=== PATIENT | male | born 1975 | race Caucasian/White ===

== ENCOUNTER 2019-10-16 07:45 | Outpatient (CLI) | payer SELFPAY ==
--- NOTE | 2019-10-16 08:00 | US_ITS ---
WS: [id number] TESTICULAR ULTRASOUND HISTORY: undescended testicle COMPARISON: None available. TECHNIQUE: Real-time and color Doppler imaging or utilized to perform a testicular ultrasound. Right testicle: 5.5 cm x 3.4 cm x 2.1 cm. Normal size and echogenicity. No mass or torsion. Normal color Doppler is present throughout. Systolic and diastolic velocities are both present. No significant hydrocele. Right epididymis: Normal epididymis with no increased vascularity. Left testicle: 3.2 cm x 2.2 cm x 1.4 cm. Small, atrophied LEFT testicle. Tunica albuginea cyst measures 6 mm along the inferior scrotum. No ma ss identified. The LEFT testicle is high within the LEFT inguinal region. Dilated tubular structure posterior to the LEFT inferior testicle is probably a varicocele. No significant hydrocele. Left epididymis: Normal epididymis with no increased vascularity. US/US scrotum [id number] IMPRESSION: 1. Mild atrophy LEFT testicle with the testicle being slightly high riding in the inguinal canal. 2. Negative RIGHT testicle.
== END 2019-10-16 07:46 | disposition home or self-care (01) ==
LOC: RAD 07:48 → RADWPI 07:50
PROVIDERS: PCP Nurse Practitioner Family; Visit Provider Nurse Practitioner Family
DX: Q53.10 Unspecified undescended testicle, unilateral (principal); N50.9 Disorder of male genital organs, unspecified; N45.1 Epididymitis
CPT/HCPCS: 76870

== ENCOUNTER → 2019-12-04 15:12 | Outpatient (BNVA) | payer SELFPAY | PROVIDERS: PCP Nurse Practitioner Family; Visit Provider Urology | DX: N50.811 Right testicular pain (principal); N50.812 Left testicular pain | CPT/HCPCS: 81001 ==

== ENCOUNTER 2019-12-16 10:20 | Day surgery (SDC) | payer SELFPAY ==
[2019-12-13 10:47] VITALS: BMI 21.2
[2019-12-16 10:40] VITALS: BP 110/80; PULSE 63; RESP 20; TEMP 36; O2SAT 99
[2019-12-16] MEDS: sodium chloride 0.9% 1,000 ML 30 ML IV (11:05)
--- NOTE | 2019-12-16 12:30 | ANES.PREANE2 ---
Pre-Anesthetic Assessment Pre-Anesthetic Assessment: Height/Weight: Height 1.91 m Weight 77.111 kg Temp Pulse Resp BP Pulse Ox 96.8 F L 63 20 H 110/80 99 12/16/19 10:40 12/16/19 10:40 12/16/19 10:40 12/16/19 10:40 12/16/19 10:40 Preop Diagnosis: Chronic left testicular pain Proposed Procedure: Operation Date: 12/16/19 13:15 Proposed Procedures p Left Orchiectomy, Scrotal N50.811 N50.812 [id number](Left) - Yo Castillo MD Was Beta Jeromy taken within 24 hours: N/A Last intake: Intake Last Liquid Date 12/15/19 Last Liquid Time 18:00 Last Solid Date 12/15/19 Last Solid Time 22:45 Social: Social History: No alcohol and No tobacco Exam: Pre-Anes Outpt Exam: alert, oriented x 3, clear to auscultation bilaterally and regular rate & rhythm Airway: Submandibular: WNL Cervical ROM: WNL MP: 1 Dentition: Chipped Additional comments: Chipped/gapped dentition History/ROS: No significant history except as noted and No significant complaints Pulmonary: Pulmonary: None reported CV/HEM: CV/HEM: None reported : Comments: Chronic right testicular pain Hepatic: Hepatic: None reported GI: GI: None reported Metabolic: Metabolic: None reported Musc/skel: Musc/skel: None reported Neuropsych: Neuropsych: None reported Anesthetic Plan: ASA status: 2 Anesthesia: General Risk of > 500 ml blood loss (7ml/kg in children): No Meds/Allergies Current Medications: Current Medications Generic Name Dose Route Start Last Admin Trade Name Freq PRN Reason Stop Dose Admin Sodium Chloride 1,000 mls @ 30 ml s/hr 12/16/19 08:00 12/16/19 11:05 Sodium Chloride 0.9% IV 12/17/19 07:59 30 mls/hr .Q24H KAITLIN Administration PFSH Anesthesia PFSH: Medical History (Updated 12/04/19 @ 15:30 by Yo Castillo MD) H/O fracture of leg H/O undescended testicle Pain in both testicles Undescended left testicle Social History Smoking and tobacco status: current every day smoker cigarettes Packs smoked per day: 0.5 Alcohol intake: current Alcohol intake frequency: few times a week Alcohol type: beer Marital status: Current occupational status: employed History of recent travel: No Data Anesthesia Cardiac Studies: No Data to Display
--- NOTE | 2019-12-16 12:43 | W.PM.OPSUD ---
Surgery/Procedure H&P Update DATE OF PROCEDURE: December 16, 2019 DATE H&P PERFORMED: 12/04/19 H&P UPDATE INFORMATION: I have reviewed H&P completed within last 30 days, I have examined patient prior to procedure and No changes to prior documentation CHANGES TO PREVIOUS DOCUMENTATION: None. Doing well. Questions answered. PREOP DIAGNOSIS: Chronic left testicular pain PLANNED PROCEDURE: Operation Date: 12/16/19 13:15 Proposed Procedures p Left Orchiectomy, Scrotal N50.811 N50.812 [id number](Left) - Yo Castillo MD
--- NOTE | 2019-12-16 12:44 | P.OP_ITS ---
Operative Report Date of procedure: December 16, 2019 Pre-op Diagnosis: Chronic left testicular pain Post-op diagnosis: same Procedure Done: Left orchiectomy scrotal approach Pathology: Left testicle and cord Surgeon: Jonathan Anesthesia: General Estimated blood loss: Less than 20 cc none Complications: None Findings: Atrophic testicle. No other gross abnormalities. Condition: stable Disposition: PACU Brief History: Kirk is a very pleasant 44-year-old white male who had a histo ry of an undescended testicle brought down late with chronic pain since that time. Testicle was atrophic. Ultimately the pain was debilitating keeping him from doing normal daily activities and rather than consider cord blocks etc. and chronic pain medication he elected orchiectomy due to the already compromised status of the testicle. Procedure: After routine preoperative evaluation examination and obtaining of informed consent he was taken to the operating suite on 12/16/2019 where general anesthesia was administered without difficulty after appropriate timeout was performed, SCDs confirmed to be functioning, preoperative antibiotics administered, beta-anibal protocol confirmed. Prepped and draped in the usual sterile fashion in supine position pain careful attention to avoiding pressure points. The midline median raphae incision was made over the left testicle taken down through skin subcutaneous tissue into the tunica vaginalis which was opened to expose the testicle. The cord was dissected free and then divided between clamps and the specimen delivered. The proximal stump was doubly ligated. Hemostasis was confirmed. Wound irrigated. After confirmation of no bleeding the wound was closed with 3-0 Vicryl for the dartos layer then 4-0 Vicryl for the subcuticular closure. The wound was infiltrated with 0.25% Marcaine and a cord block was performed. Surgical skin glue was applied to the incision and after drying scrotal fluffs were applied under a scrotal support. Tolerated procedure well without complications and was awakened in the operating room and returned recovery in stable condition.
[2019-12-16 13:39] VITALS: BP 141/93; PULSE 95; RESP 18; TEMP 36.8; O2SAT 98
[2019-12-16 13:40] VITALS: BP 129/81; PULSE 93; RESP 20; O2SAT 98
--- NOTE | 2019-12-16 13:44 | SUR.PHASEI ---
PT TO PACU AWAKE ALERT TALKATIVE DENIES PAIN AND NAUSEA , VSS. DRESSING D/I
[2019-12-16 13:45] VITALS: BP 129/81; PULSE 93; RESP 18; TEMP 36.8; O2SAT 100
[2019-12-16 13:54] VITALS: BP 117/86; PULSE 84; RESP 16; TEMP 36.3; O2SAT 98
== END 2019-12-16 14:17 | disposition home or self-care (01) ==
PROVIDERS: PCP Nurse Practitioner Family; Visit Provider Urology
PROC: (CPT 54520; principal; 2019-12-16 13:15)
DX: N50.812 Left testicular pain (principal); F17.210 Nicotine dependence, cigarettes, uncomplicated
CPT/HCPCS: 54520; 12345; 88304; J0690; J1100; J2001; J2250; J2704; J3010; J3490; J7030

== ENCOUNTER → 2020-01-20 09:39 | Outpatient (BNVA) | payer SELFPAY | PROVIDERS: PCP Nurse Practitioner Family; Visit Provider Urology | DX: N50.811 Right testicular pain (principal); N50.812 Left testicular pain | CPT/HCPCS: 81001 ==

== ENCOUNTER 2022-03-11 11:23 | Emergency (ER) | payer MEDICAID, SELFPAY ==
[2022-03-11 11:37] VITALS: BP 123/85; PULSE 110; RESP 16; TEMP 36.5; O2SAT 98
--- NOTE | 2022-03-11 11:53 | USCV_ITS ---
Kirk Curry Age: 46 Gender: M : 1975 Exam Date: 03/11/2022 12:01 Ordering Phys: Federico Siddiqui DO Technologist: SHA Exam Location: [facility] Indication: RLE PAIN AND SWELLING HISTORY: Lower extremity swelling. Lower extremity pain. PROCEDURES: Venous duplex imaging was performed in only the right lower extremity. The following venous structures were evaluated: common femoral vein, profunda vein, proximal portion of the greater saphenous vein, superficial femoral vein, and the popliteal vein. In addition, the posterior tibial and peroneal trunk were evaluated. Serial compression, augmentation maneuvers, and spectral Doppler flow evaluation were performed. FINDINGS: Acute, occlusive DVT seen in Right popliteal through posterior tibial vein. All other veins appear patent. CONCLUSIONS Acute right DVT, popliteal and posterior tibial vein. Dr. Luciana Ramos DO (Electronically Signed) Final Date: 11 March 2022 13:11 S
[2022-03-11 12:00] VITALS: BP 130/91; PULSE 103; RESP 18; O2SAT 97
--- NOTE | 2022-03-11 12:00 | W.ED.EXTPRO ---
HPI - Extremity Problem General: Chief complaint: Extremity Problem,Nontraumatic Stated complaint: Lower R Leg pain Time Seen by Provider: 03/11/22 11:53 Source: patient Mode of arrival: ambulatory History of Present Illness: 46-year-old male presented to the emergency room with complaint of right lower leg pain has had for the last several days no recent airline flights or prolonged trips no history of DVT. He has moderate swelling with it as well. No recent surgeries. MD Complaint: extremity pain and extremity swelling Onset (ago): day(s) Pain Consistency: constant Location: right and lower extremity Quality: aching Radiation: none Relieving factors: nothing Exacerbating factors: weight bearing and walking Associated symptoms: Deny arthralgias, chest pain, fever(s), myalgias, rash or short of breath Review of Systems Const: Denies: fever(s), chills, fatigue or malaise ENMT: Denies: throat pain, ear or mastoid pain, nasal discharge or nasal congestion Card: Denies: chest pain Resp: Denies: dyspnea, productive cough or non-productive cough GI: Denies: abdominal pain, nausea, vomiting, hematemesis, coffee ground emesis, diarrhea, constipation, bloating, hematochezia or melena : Denies: flank pain, dysuria, urinary frequency or urinary urgency Skin/Breast: Denies: rash PFSH ED PFSH: Medical History H/O fracture of leg H/O undescended testicle Pain in both testicles Testicular pain Undescended left testicle Family History Mother Diabetes Father No problems noted. Social History Smoking and tobacco status: current every day smoker cigarettes Packs smoked per day: 0.5 Alcohol intake: current Alcohol intake frequency: few times a week Alcohol type: beer Marital status: Current occupational status: employed History of recent travel: No Physical Exam Const: COMMON NORMALS: no acute distress GENERAL APPEARANCE: cooperative and comfortable ORIENTATION/CONSCIOUSNESS: Yes awake, Yes oriented to person, Yes oriented to place and Yes oriented to time HENMT: COMMON NORMALS: normocephalic, atraumatic and hearing grossly normal bilaterally HEAD & SCALP: normocephalic and atraumatic Resp: COMMON NORMALS: normal respiratory effort, No retractions, No use of accessory muscles and clear to auscultation bilaterally AUSCULTATION: clear to auscultation bilaterally Cardio: COMMON NORMALS: regular rate, regular rhythm and No murmurs present (Cardio) RATE: regular rate RHYTHM: regular rhythm GI: COMMON NORMALS: Soft to palpation and No hepatosplenomegaly present AUSCULTATION: Yes normoactive bowel sounds PALPATION: Yes Soft to palpation, No Tenderness to palpation present (GI), No Guarding due to palpation present (GI) and Yes No hepatosplenomegaly present Extremity: COMMON NORMALS: normal to inspection, capillary refill normal, no clubbing, cyanosis or edema, no calf tenderness and no pedal edema Neuro: SENSORIUM/ORIENTATION: Yes oriented to person, Yes oriented to place and Yes oriented to time Skin: COMMON NORMALS: no rashes or lesions noted GENERAL SKIN EXAM: no rashes or lesions noted Course Vital Signs: Vital signs: Vital Signs Temperature 97.7 F 03/11/22 11:37 Pulse Rate 90 03/11/22 12:32 Respiratory Rate 18 03/11/22 12:32 Blood Pressure 127/87 03/11/22 12:32 Pulse Oximetry 98 03/11/22 12:32 Oxygen Delivery Me thod 03/11/22 12:00 MDM - Extremity (Nontraumatic) Medical Decision Making Venous duplex shows popliteal DVT. Lovenox subcu here start Eliquis follow-up with primary care return if is problems specially watch for shortness of breath or chest pain. Medical Records I reviewed the patient's medical records. Lab Data I reviewed the patient's lab results. Discharge Plan Discharge Patient Disposition: Home Clinical Impression: DVT (deep venous thrombosis) Condition: Stable Prescriptions: New Eliquis DVT-PE Treat 30D Start 5 mg (74 tabs) tablets,dose pack See Rx Instructions .ROUTE .COMPLEX Qty: 74 0RF Rx Instructions: orally per package directions Discharge Orders: Discharge ED (Routine); Ordered 03/11/22 Ordered By: Federico Siddiqui Referrals: Shayna Tyson NP [Primary Care Provider] - Discharge Diet: Usual diet Discharge Activity: Increase activity as tolerated Patient Instructions: Opioid Safety Activity Restrictions/Additional Instructions: You were diagnosed with a DVT. Started on Eliquis follow-up with your doctor within the week. Anticipate staying on the Eliquis for at least 6 to 9 months possibly longer. When you have your follow-up appointment with your primary care doctor next week you should discuss refills on your Eliquis. Coding Level of Care Code ED [employer] for Ezequiel Rodriguez
[2022-03-11 12:32] VITALS: BP 127/87; PULSE 90; RESP 18; O2SAT 98
== END 2022-03-11 12:34 | disposition home or self-care (01) ==
PROVIDERS: Emergency Provider Family Medicine; PCP Nurse Practitioner Family
DX: I82.431 Acute embolism and thrombosis of right popliteal vein (principal); F17.210 Nicotine dependence, cigarettes, uncomplicated
CPT/HCPCS: 93971; 99284

== ENCOUNTER 2023-01-03 12:33 | Emergency (ER) | payer BC, MEDICAID, SELFPAY ==
--- NOTE | 2023-01-03 12:38 | USCV_ITS ---
Kirk Curry Age: 47 Gender: M : 1975 Exam Date: 01/03/2023 13:41 Ordering Phys: Minda Hodgosn MD Technologist: Jozef Avila [place] [facility] [place] Indication: lt leg pain and swelling hx of dvt on rt side PROCEDURES: Venous duplex imaging was performed in only the left lower extremity. The following venous structures were evaluated: common femoral vein, profunda vein, proximal portion of the greater saphenous vein, superficial femoral vein, and the popliteal vein. In addition, the posterior tibial and peroneal trunk were evaluated. FINDINGS: Normal 2-D Doppler and augmentation and compressibility throughout the lower extremity venous structures. Additional imaging through the proximal calf veins also reveals no thrombus. Limited evaluation of the greater saphenous vein is patent with no thrombus. CONCLUSIONS No evidence of left lower extremity DVT. Jimbo Frey MD (Electronically Signed) Final Date: 05 January 2023 12:48 S
[2023-01-03 13:02] VITALS: BP 123/89; PULSE 87; RESP 16; TEMP 36.7; O2SAT 98; BMI 22.5
--- NOTE | 2023-01-03 14:20 | ED_ITS ---
HPI - Extremity Problem General: Chief complaint: Extremity Injury, Lower Stated complaint: possible bloodclot in left leg Time Seen by Provider: 01/03/23 14:19 History of Present Illness: Patient is a 47-year-old male that comes to the ED with left leg pain. Pain started in left knee last night. He denies any injury or trauma to cause pain. He rates his pain about a 7 out of 10 when he is ambulating. His main concern was to be checked for DVT. Associated symptoms: Deny chest pain, fever(s) or rash Review of Systems Const: Denies: fever(s), chills or fatigue Eyes: Denies: change in vision or eye discomfort ENMT: Denies: throat pain, odynophagia, nasal discharge or nasal congestion Card: Denies: chest pain, palpitations, edema, swelling of feet/ankles, dyspnea on exertion or orthopnea Resp: Denies: dyspnea, productive cough or non-productive cough GI: Denies: abdominal pain, nausea, vomiting, diarrhea, constipation or hematochezia : Denies: flank pain, difficulty urinating, dysuria or hematuria Musc: Reports: extremity pain (Left leg); Denies: neck pain, back pain or extremity swelling Skin/Breast: Denies: rash or new lesions Neuro: Denies: headache(s), numbness in extremities or weakness in extremities PFS ED PFSH: Medical History H/O fracture of leg H/O undescended testicle Pain in both testicles Testicular pain Undescended left testicle Family History Mother Diabetes Father No problems noted. Social History Smoking and tobacco status: current every day smoker cigarettes Packs smoked per day: 0.5 Alcohol intake: current Alcohol intake frequency: few times a week Alcohol type: beer Substance/Drug Use: never Marital status: Current occupational status: employed Physical Exam Const: COMMON NORMALS: patient oriented x3 HENMT: COMMON NORMALS: normocephalic HEAD & SCALP: normocephalic MOUTH: Normal oral and palatal mucosa present THROAT: posterior oropharynx normal and uvula midline Neck/C-Spine: COMMON NORMALS: supple GENERAL: Yes normal visual inspection Resp: COMMON NORMALS: normal respiratory effort, No retractions, No use of accessory muscles and clear to auscultation bilaterally AUSCULTATION: clear to auscultation bilaterally Cardio: COMMON NORMALS: regular rate, regular rhythm, S1 normal heart sound present, S2 normal heart sound present, No gallops present (Cardio), No clicks present (Cardio), No murmurs present (Cardio) and Peripheral pulses 2+ throughout RATE: regular rate RHYTHM: regular rhythm HEART SOUNDS: S1 normal heart sound present and S2 normal heart sound present PERIPHERAL PULSES: Peripheral pulses 2+ throughout GI: COMMON NORMALS: Normal to inspection, nondistended, normoactive bowel sounds present, Soft to palpation, non-tender and no masses PALPATION: Yes Soft to palpation : COMMON NORMALS: Yes no CVA tenderness BLADDER/KIDNEY EXAM: Yes no CVA tenderness Back/Pelvis: COMMON NORMALS: no CVA tenderness Extremity: COMMON NORMALS: normal to inspection Neuro: COMMON NORMALS: patient oriented x3 GAIT: Yes Normal gait present Skin: GENERAL SKIN EXAM: dry skin Course Vital Signs: Vital signs: Vital Signs Temperature 98.0 F 01/03/23 13:02 Pulse Rate 87 01/03/23 13:02 Respiratory Rate 16 01/03/23 13:02 Blood Pressure 123/89 01/03/23 13:02 Pulse Oximetry 98 01/03/23 13:02 Oxygen Delivery Me thod Room Air 01/03/23 13:02 MDM - Extremity (Nontraumatic) Medical Decision Making Patient is a 47-year-old male that comes to the ED with left leg pain. Pain started in left knee last night. He denies any injury or trauma to cause pain. He rates his pain about a 7 out of 10 when he is ambulating. His main concern was to be checked for DVT. Vitals are stable. Exam is benign. Ultrasound venous duplex of left lower extremity showed no DVTs or blood clots seen as reported by process controls technician. Patient was stable for discharge home and diagnosed with pain in left leg. Told to follow-up with his PCP in the next week for reevaluation. Return ED precautions given. Patient understood and agreed with plan. Discharge Plan Discharge Patient Disposition: Home Clinical Impression: Pain in left leg Condition: Stable Prescriptions: No Action Eliquis 5 mg tablet 5 mg PO BID Qty: 60 6RF Discharge Orders: Discharge ED (Routine); Ordered 01/03/23 Ordered By: Jewel Ling Referrals: Shayna Tyson NP [Primary Care Provider] - Discharge Diet: Regular Discharge Activity: Increase activity as tolerated and Use walker/crutches as instructed Activity Restrictions/Additional Instructions: Follow-up with medical provider as directed in the next 5 to 7 days for reevaluation. Rest, ice and elevate left leg to help with symptoms. Take [id number] Tylenol for pain. Continue taking all home medications as previously prescribed. Return to the ER or your medical provider if condition worsens. Please read and understand discharge instructions. Thank you for choosing [facility] for your healthcare needs today. Please realize this is an emergency room and that we are providing you with a medical screening exam and this may not be complete and all inclusive of all the testing and or work up that you may need to determine your ailment or severity of your illness. It is very important that you follow up as instructed or that you return to the Emergency Department should you have concerns or if your condition changes or worsens in any way. Coding Level of Care Code ED [employer] for Ezequiel Rodriguez
== END 2023-01-03 14:33 | disposition home or self-care (01) ==
PROVIDERS: Emergency Provider Physician Assistant; PCP Nurse Practitioner Family
DX: M79.605 Pain in left leg (principal); F17.210 Nicotine dependence, cigarettes, uncomplicated
CPT/HCPCS: 93971; 99284

== ENCOUNTER 2024-01-18 00:08 | Inpatient (IN) | payer SELFPAY ==
[2024-01-18] VITALS (8 sets, daily range): BP systolic 111–145; BP diastolic 68–97; PULSE 69–91; RESP 15–17; TEMP 36.4–36.7; O2SAT 97–100
--- NOTE | 2024-01-18 00:18 | ECG_ITS ---
[facility] Test Date: 2024-01-18 Pat Name: Kirk Curry Department: Room: Gender: Male Etl Analyst Developer: : 1975 Requested By: Harriett Reeves Order Number: [id number] Adriana MD: Vinicius Ortiz M.D. Measurements Intervals [place] Rate: 75 P: 68 [place]: 177 QRS: 73 QRSD: 101 T: 58 QT: 383 QTc: 429 Interpretive Statements SINUS RHYTHM POSSIBLE LEFT ATRIAL ENLARGEMENT [-0.1mV P-WAVE IN V1/V2] No previous ECG available for comparison Electronically Signed On 01-18-2024 23:21:57 CDT by Vinicius Ortiz M.D. [id number]
--- NOTE | 2024-01-18 00:31 | ED.C_ITS ---
HPI - Psych 2 General: Chief Complaint: Psychiatric Symptoms Stated Complaint: SI Time Seen by Provider: 01/18/24 00:14 History of Present Illness: 48-year-old man who presents to the [facility] room with suicidal thoughts. He says he has been thinking about it for several months now. He says he had taken a rope and made a noose and was going to hang into a tree today. He has a bit of an odd affect. He says he is not on any depression medications and has never been prescribed any. Review of Systems 2 Narrative: Constitutional symptoms: Negative except as documented in HPI. Skin symptoms: Negative except as documented in HPI. Eye symptoms: Negative except as documented in HPI. ENMT symptoms: Negative except as documented in HPI. Respiratory symptoms: Negative except as documented in HPI. Cardiovascular symptoms: Negative except as documented in HPI. Gastrointestinal symptoms: Negative except as documented in HPI. Genitourinary symptoms: Negative except as documented in HPI. Musculoskeletal symptoms: Negative except as documented in HPI. Neurologic symptoms: Negative except as documented in HPI. Psychiatric symptoms: Negative except as documented in HPI. Endocrine symptoms: Negative except as documented in HPI. PFSH ED 2 PFSH: Medical History H/O fracture of leg H/O undescended testicle Pain in both testicles Testicular pain Undescended left testicle Family History Mother Diabetes Father No problems noted. Social History Smoking and tobacco/nicotine status: current every day tobacco/nicotine user cigarettes Packs smoked per day: 0.5 Alcohol intake: current Alcohol intake frequency: few times a week Alcohol type: beer Substance/Drug Use: never Marital status: Current occupational status: employed Physical Exam 2 Narrative: EXAM NARRATIVE: General: Alert. no acute distress Skin: Warm, dry Head: Normocephalic, atraumatic. Neck: Supple, trachea midline. Eye: Extraocular movements are intact. Ears, nose, mouth and throat: Oral mucosa moist. Cardiovascular: Regular rate and rhythm, Normal peripheral perfusion. Respiratory: Lungs are clear to auscultation, respirations are non-labored, breath sounds are equal, Symmetrical chest wall expansion. Gastrointestinal: Soft, Nontender, Non distended, Normal bowel sounds. Musculoskeletal: Normal ROM, no deformity. Neurological: Alert and oriented to person, place, time, and situation, No focal neurological deficit observed. Psychiatric: Cooperative, pressured affect, expresses suicidal ideation. Course 2 Vital Signs: Vital signs: Vital Signs Temperature 98.1 F 01/18/24 00:21 Pulse Rate 78 01/18/24 00:21 Respiratory Rate 16 01/18/24 00:21 Blood Pressure 118/84 01/18/24 00:21 Pulse Oximetry 97 01/18/24 00:21 Oxygen Delivery Me thod Room Air 01/18/24 00:21 MDM - Psych Medical Decision Making Differential diagnosis: Patient with reported depression and suicidal ideation. concerns for infection, alcohol intoxication, cardiac issues or other medical problems prior to psychiatric admission. Workup: labwork, ekg ordered to evaluate the pathologies and to clear the patient medically prior to psychiatric admission Lab Review: Laboratory results were reviewed and interpreted by myself the emergency room physician. Lab review: - Medically cleared. - EKG shows no ischemic changes. - Blood alcohol level is 278, as well as salicylate and Tylenol. - Drug screen is negative - No signs of infection, urinalysis clear and white count is not elevated - No anemia. - BUN and creatinine are within normal limits. Consultation: I spoke with Dr. Trivedi who agrees to admit the patient. Patient is currently alert and oriented and obviously has some experience drinking alcohol. Hold is being placed. Assessment and plan: Suicidal ideation Alcohol intoxication -Admission to neuropsychiatric unit for continued evaluation and treatment. - All lab work was reviewed and interpreted personally by myself, the ER physician - Evaluation and treatment of this problem were appropriate in the emergency setting Lab Data 01/18/24 00:30 01/18/24 00:30 Laboratory Results WBC 7.87 10^3/uL (3.29-11.43) 01/18/24 00:30 RBC 4.51 10^6/uL (3.85-5.65) 01/18/24 00:30 Hgb 13.90 g/dL (11.27-16.99) 01/18/24 00:30 Hct 40.5 % (37-53) 01/18/24 00:30 MCV 89.8 fl (82-101) 01/18/24 00:30 MCH 30.8 pg (27-33) 01/18/24 00:30 MCHC 34.3 g/dL (30-55) 01/18/24 00:30 RDW 13.9 % (12.1-15.1) 01/18/24 00:30 Plt Count 222 10^3/cmm (157-399) 01/18/24 00:30 MPV 9.2 fL (7.4-10.4) 01/18/24 00:30 Neut % (Auto) 50.2 % 01/18/24 00:30 Lymph % (Auto) 38.6 % 01/18/24 00:30 Fajardo % (Auto) 7.5 % 01/18/24 00:30 Eos % (Auto) 2.5 % 01/18/24 00:30 Baso % (Auto) 0.9 % 01/18/24 00:30 Neut # (Auto) 3.95 10^3/uL (1.8-7.7) 01/18/24 00:30 Lymph # (Auto) 3.0 10^3/uL (0.8-4.8) 01/18/24 00:30 [place]ardo # (Auto) 0.6 10^3/uL (0.2-0.9) 01/18/24 00:30 Eos # (Auto) 0.2 10^3/uL (0.0-0.8) 01/18/24 00:30 Baso # (Auto) 0.1 10^3/uL (0.0-0.1) 01/18/24 00:30 Nucleated RBC % (auto) 0 % 01/18/24 00:30 Nucleated RBCs # 0.0 /100WBC 01/18/24 00:30 Sodium 137 mmol/L (136-145) 01/18/24 00:30 Potassium 3.6 mmol/L (3.5-5.1) 01/18/24 00:30 Chloride 103 mmol/L (98-107) 01/18/24 00:30 Carbon Dioxide 22 mmol/L (22-29) 01/18/24 00:30 Anion Gap 15.6 (5-19) 01/18/24 00:30 BUN 5 mg/dL (6-20) L 01/18/24 00:30 Creatinine 0.7 mg/dL (0.7-1.2) 01/18/24 00:30 GFR Calculation 120.4 mL/min (90-130) 01/18/24 00:30 Glucose 94 mg/dL (65-115) 01/18/24 00:30 Calculated Osmolality 281 mOsm/kg (285-295) L 01/18/24 00:30 Calcium 9.4 mg/dL (8.5-10.5) 01/18/24 00:30 Total Bilirubin 0.3 mg/dL (0.15-1.2) 01/18/24 00:30 AST 34 U/L (0-40) 01/18/24 00:30 ALT 33 U/L (0-41) 01/18/24 00:30 Alkaline Phosphatase 69 U/L (40-130) 01/18/24 00:30 Total Protein 7.9 g/dL (6.6-8.7) 01/18/24 00:30 Albumin 4.4 g/dL (3.5-5.2) 01/18/24 00:30 Globulin 3.5 g/dL (1.3-4.6) 01/18/24 00:30 TSH 2.26 uIU/mL (0.27-4.20) 01/18/24 00:30 Urine Color Yellow (Yellow) 01/18/24 00:17 Urine Appearance Clear (CLEAR) 01/18/24 00:17 Urine pH 5 (5-7) 01/18/24 00:17 Ur Specific [place] 1.005 (1.005-1.030) 01/18/24 00:17 Urine Protein Neg (Negative) 01/18/24 00:17 Urine Glucose (UA) Norm (Normal) 01/18/24 00:17 Urine Ketones Negative (Negative) 01/18/24 00:17 Urine Blood Neg (Negative) 01/18/24 00:17 Urine Nitrate Negative (Negative) 01/18/24 00:17 Urine Bilirubin Neg (Negative) 01/18/24 00:17 Urine Urobilinogen Neg mg/dL (Negative) 01/18/24 00:17 Ur Leukocyte Esterase Negative (Negative) 01/18/24 00:17 Urine RBC None /hpf (0-2) 01/18/24 00:17 Urine WBC None /hpf (0-5) 01/18/24 00:17 Ur Squamous Epith Cells None /hpf (0-5) 01/18/24 00:17 Amorphous Sediment Not Reportable 01/18/24 00:17 Urine Bacteria Trace /hpf (NONE) 01/18/24 00:17 Salicylates < 0.3 mg/dL (3-10) L 01/18/24 00:30 Urine Opiates Screen Negative ng/mL (Negative) 01/18/24 00:17 Acetaminophen < 5.0 ug/mL (10-30) L 01/18/24 00:30 Ur Barbiturates Screen Negative ng/mL (Negative) 01/18/24 00:17 Ur Phencyclidine Scrn Negative ng/mL (Negative) 01/18/24 00:17 Ur Amphetamines Screen Negative ng/mL (Negative) 01/18/24 00:17 U Benzodiazepines Scrn Negative ng/mL (Negative) 01/18/24 00:17 Urine Cocaine Screen Negative ng/mL (Negative) 01/18/24 00:17 U Marijuana (THC) Screen Negative ng/mL (Negative) 01/18/24 00:17 Ethyl Alcohol 278 mg/dL (0-10) H 01/18/24 00:30 No radiology studies performed this visit Discharge Plan Discharge Patient Disposition: Admitted As Inpatient Clinical Impression: Depression, Suicidal ideation, Alcohol intoxication Condition: Stable Coding Level of Care Code ED [employer] for Ezequiel Rodriguez
[2024-01-18 00:35] LABS: Amphetamines Screen Urine Negative (Negative); Barbiturates Screen Urine Negative (Negative); Benzodiazepines Screen Urine Negative (Negative); Cocaine Screen Urine Negative (Negative); Opiate Screen Urine Negative (Negative); PCP Screen Urine Negative (Negative); THC Screen Urine Negative (Negative)
[2024-01-18 00:39] LABS: Basophils # 0.1 10^3/uL (0.0-0.1); Basophils % 0.9 %; Eosinophils # 0.2 10^3/uL (0.0-0.8); Eosinophils % 2.5 %; Hematocrit 40.5 % (37-53); Lymphocytes % 38.6 %; Mean Corpuscular HGB Conc 34.3 g/dL (30-55); Mean Corpuscular Hemoglobin 30.8 pg (27-33); Mean Corpuscular Volume 89.8 fl (82-101); Mean Platelet Volume 9.2 fL (7.4-10.4); Monocytes # 0.6 10^3/uL (0.2-0.9); Monocytes % 7.5 %; Neutrophils # 3.95 10^3/uL (1.8-7.7); Neutrophils % 50.2 %; Nucleated Red Blood Cells % 0 %; Platelet Count 222 10^3/cmm (157-399); Red Blood Count 4.51 10^6/uL (3.85-5.65); Red Cell Distribution Width 13.9 % (12.1-15.1); White Blood Count 7.87 10^3/uL (3.29-11.43)
[2024-01-18 01:04] LABS: Add Urine Culture? No; Bacteria Urine TRACE /hpf; Bilirubin Urine Neg (Negative); Blood Urine Neg (Negative); Glucose Urine UA Norm (Normal); Ketones Urine Negative (Negative); Leukocyte Esterase Urine Negative (Negative); Nitrate Urine Negative (Negative); Protein Urine Neg (Negative); Specific Gravity, Urine 1.005 (1.005-1.030); Urine Appearance Clear (CLEAR); Urine Color Yellow (Yellow); Urobilinogen Urine Neg (Negative); pH Urine 5 (5-7)
[2024-01-18 01:19] LABS: Alanine Aminotransferase 33 U/L (0-41); Albumin Level 4.4 g/dL (3.5-5.2); Alcohol Level 278 mg/dL (0-10); Alkaline Phosphatase 69 U/L (40-130); Anion Gap 15.6 (5-19); Aspartate Amino Transferase 34 U/L (0-40); Blood Urea Nitrogen 5 mg/dL (6-20); Calcium 9.4 mg/dL (8.5-10.5); Carbon Dioxide 22 mmol/L (22-29); Chloride 103 mmol/L (98-107); Creatinine Clr Calc Pharmacy 153.8189; Globulin 3.5 g/dL (1.3-4.6); Glomerular Filtration Rate 120.4 mL/min (90-130); Glucose 94 mg/dL (65-115); Osmolality Calculated 281 mOsm/kg (285-295); Potassium 3.6 mmol/L (3.5-5.1); Sodium 137 mmol/L (136-145); Thyroid Stimulating Hormone 2.26 uIU/mL (0.27-4.20); Total Bilirubin 0.3 mg/dL (0.15-1.2); Total Protein 7.9 g/dL (6.6-8.7)
[2024-01-18 01:20] LABS: Acetaminophen < 5.0 ug/mL (10-30); Salicylate < 0.3 mg/dL (3-10)
--- NOTE | 2024-01-18 01:42 | PC.NURSE ---
RN and [employer] into room to serve 96 hour hold rights. Pt verbalized understanding and no further questions. Pt requested copy of rights be placed into his belongings which was done.
--- NOTE | 2024-01-18 01:45 | PC.NURSE ---
Report was called to Michaela MONZON. All questions and concerns were addressed at time of report.
[2024-01-18 08:01] LABS: Glucose Point of Care 93 mg/dL (70-110)
[2024-01-18] MEDS: thiamine 100 mg Tablet PO (09:48)
[2024-01-18] MEDS: folic acid 1 mg Tablet PO (09:49)
[2024-01-18] MEDS: multivitamin therapeutic Tablet 1 TAB PO (09:49)
[2024-01-18 11:55] LABS: Glucose Point of Care 94 mg/dL (70-110)
--- NOTE | 2024-01-18 19:26 | P.NPUHP_ITS ---
Providers/Chief Complaint 2 Admitting Physician: Xavier Trivedi MD Primary Care Provider: Shayna Tyson NP Chief Complaint: SI HPI NPU History of Present Illness Kirk Curry is a 48 year old male who presented to the emergency department with the following report: Chief Complaint: Psychiatric Symptoms Stated Complaint: SI Time Seen by Provider: 01/18/24 00:14 History of Present Illness: 48-year-old man who presents to the emergency room with suicidal thoughts. He says he has been thinking about it for several months now. He says he had taken a rope and made a noose and was going to hang into a tree today. He has a bit of an odd affect. He says he is not on any depression medications and has never been prescribed any. He was admitted to the neuropsychiatric unit for definitive treatment of those issues. He has no significant mental health or addiction treatment inpatient or outpatient in the system. He did have contact with the crisis stabilization center last month. He presents today reporting: Chief complaint The patient was brought to the hospital due to an increase in anxiety and depressive symptoms, which have been escalating over the past few months. The patient also reported an increase in alcohol consumption, which he has been using as a coping mechanism for his emotional distress. The trigger for his recent crisis was a situation involving a female friend, which led to feelings of jealousy and frustration. History of the present complaint The patient, a 76-year-old male, presented to the hospital following an incident the previous night. He reported that over the past few months, he has been experiencing increasing anxiety, particularly in groups of people. He described this as a different kind of anxiety, not like a blackout, but something that snaps in his head. The trigger for the most recent episode was a situation involving a female friend, who was showing attention to another man. The patient admitted that he has feelings for this friend but has not expressed them due to fear of losing their friendship. The patient reported that these feelings of anxiety and frustration have been escalating over the past few months. He also admitted to struggling with low mood and feelings of helplessness, hopelessness, and worthlessness. His sleep has been disrupted, often sleeping too much, and he finds less enjoyment in life. He also reported low energy levels and changes in appetite, eating less which he believes contributes to his low energy. The patient disclosed that he has had thoughts of suicide and has acted on these thoughts twice in the past. The first time involved obtaining a rope but not taking it home, while the second time involved taking the rope home. He also admitted to self-injurious behavior, such as punching a door a couple of weeks ago. The patient reported that he started smoking daily at the age of 17 and currently smokes about two packs a day. His alcohol use has increased over the past few years, currently consuming 10 to 12 drinks daily. His blood alcohol level was 278 upon admission to the hospital. He denied any use of cannabis or other drugs. The patient has never received any mental health treatment or therapy and has never taken any medication for mental health issues. He has had one recorded DUI in 2007 and another incident where he was pulled over in 2009. The patient denied any history of hallucinations or paranoia but admitted to occasional nightmares or flashbacks without consistent patterns. He also denied any compulsive behaviors related to intrusive thoughts. In terms of past treatments and interventions, the patient mentioned talking to someone named Deanna at a crisis center following his first suicide attempt. However, he has never been on any mental health medication or received outpatient services. Regarding his current medications, the patient reported not taking any at present. Mental health history The patient has no previous history of psychiatric hospitalization or outpatient services. He has never been on any mental health medication for anxiety, depression, mood dysregulation, or ADHD. However, he has had two instances where he contemplated suicide and took steps towards it by acquiring a rope. He also reported periods of low mood characterized by feelings of helplessness, hopelessness, and worthlessness, disrupted sleep patterns (usually sleeping too much), loss of interest in life, low energy, and changes in appetite. Social history The patient is a regular smoker since the age of 17 and currently smokes about two packs a day. His alcohol consumption has increased over the past few years, currently drinking 10 to 12 beers daily. He has no history of cannabis or other drug use but has been pulled over twice for DUIs. He lives in a community with around 70 other people and has held a job for 12 years. He identifies as heterosexual and his longest relationship lasted seven years. Meds NPU Home Medications Medication Instructions Recorded Confirmed Last Taken Type No Known Home Medications 01/18/24 01/18/24 Unknown History Allergies Allergy/AdvReac Type Severity Reaction Status Date / Time Alpha-Gal Allergy ALGY-Anaphy Verified 01/18/24 00:30 (Dmvxmtrsj-Drclo-4,3-Gala laxis PFSH NPU 2 PFSH: Medical History H/O fracture of leg H/O undescended testicle Pain in both testicles Testicular pain Undescended left testicle Family History Mother Diabetes Father No problems noted. Social History Smoking and tobacco/nicotine status: current every day tobacco/nicotine user cigarettes Packs smoked per day: 0.5 Alcohol intake: current Alcohol intake frequency: few times a week Alcohol type: beer Substance/Drug Use: never Marital status: Current occupational status: employed Mental Status Exam 2 MSE Comments: This is a well-nourished well-developed white male in hospital scrubs with adequate grooming and eye contact. Notable tattoos on exposed skin of arms. No abnormal movements except for mild psychomotor retardation. Cooperative with exam in mild distress. Speech was slightly decreased rate and volume. Mood described as depressed, affect congruent. Thought process organized. Thought content: Patient denies suicidal or homicidal ideation, there were no delusions reported or noted, he denied any auditory or visual hallucinations. The patient reported feeling calm during the consultation with no current thoughts of self- harm or harm towards others. He denied experiencing paranoia or hallucinations. He did report occasional nightmares but no consistent patterns related to intrusive thoughts. Attention and concentration were intact and memory appeared mostly reliable but none were formally tested. He is alert and oriented x 3. Insight and judgment are limited and impulse control is impaired. Vitals/I&O/Wt Last Vital Signs Temp 97.5 F L 01/18/24 16:00 Pulse 69 01/18/24 16:00 Resp 17 01/18/24 18:00 BP 145/97 01/18/24 16:00 Pulse Ox 98 01/18/24 16:00 O2 Del Method Room Air 01/18/24 04:00 Weight last 48 hrs Weight 83.915 kg Data NPU 01/18/24 00:30 01/18/24 00:30 A&P Assessment and plan (1) Major depressive disorder: (2) Suicidal ideation: (3) Alcohol intoxication: (4) Alcohol use disorder, moderate, dependence: Plan This is a 48-year-old male with long history of alcohol use but limited history of mental health treatment who presented to the emergency department with suicidal thoughts and active furtherance of securing a rope. The patient appears to be suffering from major depressive disorder with symptoms including low mood, feelings of hopelessness and worthlessness, disrupted sleep patterns, loss of interest in life, low energy, changes in appetite, and suicidal ideation. His increased alcohol consumption may be a coping mechanism for his emotional distress. 1. Start Prozac 20 mg p.o. daily 2. Encourage individual, group and milieu therapy. 3. Continue every 15 minute checks for safety. 4. Evaluate for safety for discharge given 96-hour hold 5. Encourage sober living treatment after discharge at the highest level of care to which she is willing to commit. Involuntary Hold Information 2 96 Hour Hold: 96 Hour Involuntary Admission: No Attestations NPU 2 Medical Necessity Statement*: Inpatient psychiatric hospitalization is medically necessary and the clinically appropriate intervention at this time. We will monitor medications and make changes as indicated. He will be in the hospital for over 2 midnights. Likely length of stay 4-6 days. Coding Level of Care Code Acute Code for [facility] Diagnoses Major depressive disorder F32.9 Suicidal ideation R45.851 Alcohol intoxication F10.929 Alcohol use disorder, moderate, dependence F10.20
[2024-01-19] VITALS (7 sets, daily range): BP systolic 123–151; BP diastolic 78–91; PULSE 50–59; RESP 14–18; TEMP 36.4–36.8; O2SAT 98–100
--- NOTE | 2024-01-19 00:49 | PC.NURSE ---
Pt not scoring on CIWA Scale, reported Respirations, did not wake pt to get full vitals at this time.
--- NOTE | 2024-01-19 07:50 | PC.NURSE ---
Patient denies avh and si/hi. He states he feels well this morning and is scoring a zero on his CIWA this morning. He denies any withdrawal symptoms. Patient says he has a hx of medical issues with his testicles that has been ongoing and has been addressed by physicians outside of this stay. Patient rates pain in his left testicle at a 4/10. He says he experiences nausea because of this at times as well. Very pleasant and cooperative.
[2024-01-19] MEDS: thiamine 100 mg Tablet PO (09:40)
[2024-01-19] MEDS: fluoxetine 20 mg Capsule PO (09:40)
[2024-01-19] MEDS: folic acid 1 mg Tablet PO (09:40)
[2024-01-19] MEDS: multivitamin therapeutic Tablet 1 TAB PO (09:40)
--- NOTE | 2024-01-19 13:08 | P.NPUPN_ITS ---
Subjective NPU 2 Subjective: Patient presented today reporting that he is doing okay. He denied noting any changes with the Prozac and denied any clear side effects. We had a lengthy discussion about his communal living and how that started and how it works exactly. He reports that he is happy with that arrangement and is hopeful that the medication will give him the support he needs to discharge soon. Mental Status Exam 2 MSE Comments: This is a well-nourished well-developed white male in hospital scrubs with adequate grooming and eye contact. Notable tattoos on exposed skin of arms. No abnormal movements except for mild psychomotor retardation. Cooperative with exam in mild distress. Speech was slightly decreased rate and volume. Mood described as depressed, affect congruent. Thought process organized. Thought content: Patient denies suicidal or homicidal ideation, there were no delusions reported or noted, he denied any auditory or visual hallucinations. The patient reported feeling calm during the consultation with no current thoughts of self- harm or harm towards others. He denied experiencing paranoia or hallucinations. He did report occasional nightmares but no consistent patterns related to intrusive thoughts. Attention and concentration were intact and memory appeared mostly reliable but none were formally tested. He is alert and oriented x 3. Insight and judgment are limited and impulse control is impaired. Vitals/I&O/Wt Last Vital Signs Temp 97.6 F 01/19/24 12:00 Pulse 59 L 01/19/24 12:00 Resp 17 01/19/24 12:00 BP 135/91 01/19/24 12:00 Pulse Ox 99 01/19/24 12:00 O2 Del Method Room Air 01/19/24 04:00 Weight last 48 hrs Weight 83.915 kg Data NPU 01/18/24 00:30 01/18/24 00:30 A&P Assessment and plan (1) Major depressive disorder: (2) Suicidal ideation: (3) Alcohol intoxication: (4) Alcohol use disorder, moderate, dependence: Plan This is a 48-year-old male with long history of alcohol use but limited history of mental health treatment who presented to the emergency department with suicidal thoughts and active furtherance of securing a rope. The patient appears to be suffering from major depressive disorder with symptoms including low mood, feelings of hopelessness and worthlessness, disrupted sleep patterns, loss of interest in life, low energy, changes in appetite, and suicidal ideation. His increased alcohol consumption may be a coping mechanism for his emotional distress. 1. Started Prozac 20 mg p.o. daily 2. Encourage individual, group and milieu therapy. 3. Continue every 15 minute checks for safety. 4. Evaluate for safety for discharge given 96-hour hold 5. Encourage sober living treatment after discharge at the highest level of care to which she is willing to commit. Involuntary Hold Information 2 96 Hour Hold: 96 Hour Involuntary Admission: No Attestations NPU 2 Medical Necessity Statement*: Inpatient psychiatric hospitalization is medically necessary and the clinically appropriate intervention at this time. We will monitor medications and make changes as indicated. Likely length of stay 3-5 days. Coding Level of Care Code Acute Code for [facility] Diagnoses Major depressive disorder F32.9 Suicidal ideation R45.851 Alcohol intoxication F10.929 Alcohol use disorder, moderate, dependence F10.20
[2024-01-20 06:00] VITALS: BP 134/96; PULSE 68; RESP 18; TEMP 36.8; O2SAT 99
[2024-01-20] MEDS: thiamine 100 mg Tablet PO (08:33)
[2024-01-20] MEDS: multivitamin therapeutic Tablet 1 TAB PO (08:33)
[2024-01-20] MEDS: fluoxetine 20 mg Capsule PO (08:33)
[2024-01-20] MEDS: folic acid 1 mg Tablet PO (08:33)
--- NOTE | 2024-01-20 09:58 | P.NPUPN_ITS ---
Subjective NPU 2 Subjective: Patient presented today reporting that he is starting to feel better on the medication. He did endorse feeling that there is some tiredness that he is experiencing with it but nothing that is unmanageable. Staff report some isolation but less stressful appearance which was noted as well on direct observation. He denied any side effects to the medication. And we discussed the likelihood of discharge on Monday with appropriate aftercare. Mental Status Exam 2 MSE Comments: This is a well-nourished well-developed white male in hospital scrubs with adequate grooming and eye contact. Notable tattoos on exposed skin of arms. No abnormal movements except for mild psychomotor retardation. Cooperative with exam in mild distress. Speech was slightly decreased rate and volume. Mood described as improving, affect congruent. Thought process organized. Thought content: Patient denies suicidal or homicidal ideation, there were no delusions reported or noted, he denied any auditory or visual hallucinations. The patient reported feeling calm during the consultation with no current thoughts of self- harm or harm towards others. He denied experiencing paranoia or hallucinations. He did report occasional nightmares but no consistent patterns related to intrusive thoughts. Attention and concentration were intact and memory appeared mostly reliable but none were formally tested. He is alert and oriented x 3. Insight and judgment are limited and impulse control is limited but improving. Vitals/I&O/Wt Last Vital Signs Temp 98.2 F 01/20/24 06:00 Pulse 68 01/20/24 06:00 Resp 18 01/20/24 06:00 BP 134/96 01/20/24 06:00 Pulse Ox 99 01/20/24 06:00 O2 Del Method Room Air 01/19/24 19:57 Data NPU 01/18/24 00:30 01/18/24 00:30 A&P Assessment and plan (1) Major depressive disorder: (2) Suicidal ideation: (3) Alcohol intoxication: (4) Alcohol use disorder, moderate, dependence: Plan This is a 48-year-old male with long history of alcohol use but limited history of mental health treatment who presented to the emergency department with suicidal thoughts and active furtherance of securing a rope. The patient appears to be suffering from major depressive disorder with symptoms including low mood, feelings of hopelessness and worthlessness, disrupted sleep patterns, loss of interest in life, low energy, changes in appetite, and suicidal ideation. His increased alcohol consumption may be a coping mechanism for his emotional distress. 1. Started Prozac 20 mg p.o. daily 2. Encourage individual, group and milieu therapy. 3. Continue every 15 minute checks for safety. 4. Evaluate for safety for discharge given 96-hour hold 5. Encourage sober living treatment after discharge at the highest level of care to which she is willing to commit. Involuntary Hold Information 2 96 Hour Hold: 96 Hour Involuntary Admission: No Attestations NPU 2 Medical Necessity Statement*: Inpatient psychiatric hospitalization is medically necessary and the clinically appropriate intervention at this time. We will monitor medications and make changes as indicated. Likely length of stay 2-4 days. Coding Level of Care Code Acute Code for [facility] Diagnoses Major depressive disorder F32.9 Suicidal ideation R45.851 Alcohol intoxication F10.929 Alcohol use disorder, moderate, dependence F10.20
[2024-01-20 14:00] VITALS: BP 116/83; PULSE 66; RESP 16; TEMP 36.6; O2SAT 99
[2024-01-20] MEDS: trazodone 50 mg Tablet PO (20:21)
[2024-01-20 22:00] VITALS: BP 130/80; PULSE 66; RESP 17; TEMP 36.8; O2SAT 99
[2024-01-21 06:00] VITALS: BP 119/84; PULSE 86; RESP 16; TEMP 36.7; O2SAT 97
[2024-01-21] MEDS: thiamine 100 mg Tablet PO (09:01)
[2024-01-21] MEDS: fluoxetine 20 mg Capsule PO (09:01)
[2024-01-21] MEDS: folic acid 1 mg Tablet PO (09:01)
[2024-01-21] MEDS: multivitamin therapeutic Tablet 1 TAB PO (09:01)
[2024-01-21 14:00] VITALS: BP 107/74; PULSE 72; RESP 16; TEMP 36.8; O2SAT 99
--- NOTE | 2024-01-21 19:04 | P.NPUPN_ITS ---
Subjective NPU 2 Subjective: Patient presented today reporting that he is doing better and feels optimistic about discharge. Continue to talk about his life [place] and feeling that he will be able to manage things better this time with the medication and follow-up. We discussed the social work team returning tomorrow and him being discharged after appointments are established. He denied any side effects to the medication. Mental Status Exam 2 MSE Comments: This is a well-nourished well-developed white male in hospital scrubs with adequate grooming and eye contact. Notable tattoos on exposed skin of arms. No abnormal movements except for mild psychomotor retardation. Cooperative with exam in mild distress. Speech was slightly decreased rate and volume. Mood described as improving, affect congruent. Thought process organized. Thought content: Patient denies suicidal or homicidal ideation, there were no delusions reported or noted, he denied any auditory or visual hallucinations. The patient reported feeling calm during the consultation with no current thoughts of self- harm or harm towards others. He denied experiencing paranoia or hallucinations. He did report occasional nightmares but no consistent patterns related to intrusive thoughts. Attention and concentration were intact and memory appeared mostly reliable but none were formally tested. He is alert and oriented x 3. Insight and judgment are limited and impulse control is limited but improving. Vitals/I&O/Wt Last Vital Signs Temp 98.3 F 01/21/24 14:00 Pulse 72 01/21/24 14:00 Resp 16 01/21/24 14:00 BP 107/74 01/21/24 14:00 Pulse Ox 99 01/21/24 14:00 O2 Del Method Room Air 01/21/24 14:00 Weight last 48 hrs Weight 84.822 kg Data NPU 01/18/24 00:30 01/18/24 00:30 A&P Assessment and plan (1) Major depressive disorder: (2) Suicidal ideation: (3) Alcohol intoxication: (4) Alcohol use disorder, moderate, dependence: Plan This is a 48-year-old male with long history of alcohol use but limited history of mental health treatment who presented to the emergency department with suicidal thoughts and active furtherance of securing a rope. The patient appears to be suffering from major depressive disorder with symptoms including low mood, feelings of hopelessness and worthlessness, disrupted sleep patterns, loss of interest in life, low energy, changes in appetite, and suicidal ideation. His increased alcohol consumption may be a coping mechanism for his emotional distress. 1. Started Prozac 20 mg p.o. daily 2. Encourage individual, group and milieu therapy. 3. Continue every 15 minute checks for safety. 4. Evaluate for safety for discharge given 96-hour hold 5. Encourage sober living treatment after discharge at the highest level of care to which she is willing to commit. Involuntary Hold Information 2 96 Hour Hold: 96 Hour Involuntary Admission: No Attestations NPU 2 Medical Necessity Statement*: Inpatient psychiatric hospitalization is medically necessary and the clinically appropriate intervention at this time. We will monitor medications and make changes as indicated. Likely length of stay 1-3 days. Coding Level of Care Code [facility] Diagnoses Major depressive disorder F32.9 Suicidal ideation R45.851 Alcohol intoxication F10.929 Alcohol use disorder, moderate, dependence F10.20
[2024-01-21 19:54] VITALS: BP 125/85; PULSE 73; RESP 18; TEMP 36.9; O2SAT 99
[2024-01-22 06:00] VITALS: BP 130/90; PULSE 83; RESP 17; TEMP 36.7; O2SAT 99
[2024-01-22] MEDS: multivitamin therapeutic Tablet 1 TAB PO (08:30)
[2024-01-22] MEDS: fluoxetine 20 mg Capsule PO (08:30)
[2024-01-22] MEDS: folic acid 1 mg Tablet PO (08:30)
[2024-01-22] MEDS: thiamine 100 mg Tablet PO (08:30)
--- NOTE | 2024-01-22 08:37 | PC.NURSE ---
Patient denies avh and si/hi. He states he is supposed to be discharged to the [facility]. Patient says he feels ready to be discharged. Appears to be in a jovial mood this morning. Denies any concerns this morning.
--- NOTE | 2024-01-22 12:22 | W.PM.NPUDCS ---
Diagnoses at Discharge Discharge Diagnosis (1) Major depressive disorder: Status: Acute (2) Suicidal ideation: Status: Acute (3) Alcohol intoxication: Status: Acute (4) Alcohol use disorder, moderate, dependence: Status: Acute Reason for Visit Reason for Visit: SI Involuntary Hold Information 96 Hour Hold: 96 Hour Involuntary Admission: No Mental Status Exam MSE Comments: This is a well-nourished well-developed white male in hospital scrubs with adequate grooming and eye contact. Notable tattoos on exposed skin of arms. No abnormal movements except for mild psychomotor retardation. Cooperative with exam in mild distress. Speech was slightly decreased rate and volume. Mood described as improving, affect congruent. Thought process organized. Thought content: Patient denies suicidal or homicidal ideation, there were no delusions reported or noted, he denied any auditory or visual hallucinations. The patient reported feeling calm during the consultation with no current thoughts of self-harm or harm towards others. He denied experiencing paranoia or hallucinations. He did report occasional nightmares but no consistent patterns related to intrusive thoughts. Attention and concentration were intact and memory appeared mostly reliable but none were formally tested. He is alert and oriented x 3. Insight and judgment are limited and impulse control is limited but improving. Discharge Data Studies Completed and Pending: Laboratory Results WBC 7.87 10^3/uL (3.2 9-11.43) 01/18/24 00:30 RBC 4.51 10^6/uL (3.8 5-5.65) 01/18/24 00:30 Hgb 13.90 g/dL (11.27 -16.99) 01/18/24 00:30 Hct 40.5 % (37-53) 01/18/24 00:30 MCV 89.8 fl (82-101) 01/18/24 00:30 MCH 30.8 pg (27-33) 01/18/24 00:30 MCHC 34.3 g/dL (30-55) 01/18/24 00:30 RDW 13.9 % (12.1-15.1 ) 01/18/24 00:30 Plt Count 222 10^3/cmm (157 -399) 01/18/24 00:30 MPV 9.2 fL (7.4-10.4) 01/18/24 00:30 Neut % (Auto) 50.2 % 01/18/24 00:30 Lymph % (Auto) 38.6 % 01/18/24 00:30 Moody % (Auto) 7.5 % 01/18/24 00:30 Eos % (Auto) 2.5 % 01/18/24 00:30 Baso % (Auto) 0.9 % 01/18/24 00:30 Neut # (Auto) 3.95 10^3/uL (1.8 -7.7) 01/18/24 00:30 Lymph # (Auto) 3.0 10^3/uL (0.8- 4.8) 01/18/24 00:30 Moody # (Auto) 0.6 10^3/uL (0.2- 0.9) 01/18/24 00:30 Eos # (Auto) 0.2 10^3/uL (0.0- 0.8) 01/18/24 00:30 Baso # (Auto) 0.1 10^3/uL (0.0- 0.1) 01/18/24 00:30 Nucleated RBC % (a uto) 0 % 01/18/24 00:30 Nucleated RBCs # 0.0 /100WBC 01/18/24 00:30 Sodium 137 mmol/L (136-1 45) 01/18/24 00:30 Potassium 3.6 mmol/L (3.5-5 .1) 01/18/24 00:30 Chloride 103 mmol/L (98-10 7) 01/18/24 00:30 Carbon Dioxide 22 mmol/L (22-29) 01/18/24 00:30 Anion Gap 15.6 (5-19) 01/18/24 00:30 BUN 5 mg/dL (6-20) L 01/18/24 00:30 Creatinine 0.7 mg/dL (0.7-1. 2) 01/18/24 00:30 GFR Calculation 120.4 mL/min (90- 130) 01/18/24 00:30 Glucose 94 mg/dL (65-115) 01/18/24 00:30 POC Glucose 94 mg/dL (70-110) 01/18/24 11:48 Calculated Osmolal ity 281 mOsm/kg (285- 295) L 01/18/24 00:30 Calcium 9.4 mg/dL (8.5-10 .5) 01/18/24 00:30 Total Bilirubin 0.3 mg/dL (0.15-1 .2) 01/18/24 00:30 AST 34 U/L (0-40) 01/18/24 00:30 ALT 33 U/L (0-41) 01/18/24 00:30 Alkaline Phosphata se 69 U/L (40-130) 01/18/24 00:30 Total Protein 7.9 g/dL (6.6-8.7 ) 01/18/24 00:30 Albumin 4.4 g/dL (3.5-5.2 ) 01/18/24 00:30 Globulin 3.5 g/dL (1.3-4.6 ) 01/18/24 00:30 TSH 2.26 uIU/mL (0.27 -4.20) 01/18/24 00:30 Urine Color Yellow (Yellow) 01/18/24 00:17 Urine Appearance Clear (CLEAR) 01/18/24 00:17 Urine pH 5 (5-7) 01/18/24 00:17 Ur Specific Gravit y 1.005 (1.005-1.0 30) 01/18/24 00:17 Urine Protein Neg (Negative) 01/18/24 00:17 Urine Glucose (UA) Norm (Normal) 01/18/24 00:17 Urine Ketones Negative (Negati ve) 01/18/24 00:17 Urine Blood Neg (Negative) 01/18/24 00:17 Urine Nitrate Negative (Negati ve) 01/18/24 00:17 Urine Bilirubin Neg (Negative) 01/18/24 00:17 Urine Urobilinogen Neg mg/dL (Negati ve) 01/18/24 00:17 Ur Leukocyte Irina ase Negative (Negati ve) 01/18/24 00:17 Urine RBC None /hpf (0-2) 01/18/24 00:17 Urine WBC None /hpf (0-5) 01/18/24 00:17 Ur Squamous Epith Cells None /hpf (0-5) 01/18/24 00:17 Amorphous Sediment Not Reportable 01/18/24 00:17 Urine Bacteria Trace /hpf (NONE) 01/18/24 00:17 Salicylates < 0.3 mg/dL (3-10 ) L 01/18/24 00:30 Urine Opiates Scre en Negative ng/mL (N egative) 01/18/24 00:17 Acetaminophen < 5.0 ug/mL (10-3 0) L 01/18/24 00:30 Ur Barbiturates Sc reen Negative ng/mL (N egative) 01/18/24 00:17 Ur Phencyclidine S crn Negative ng/mL (N egative) 01/18/24 00:17 Ur Amphetamines Sc reen Negative ng/mL (N egative) 01/18/24 00:17 U Benzodiazepines Scrn Negative ng/mL (N egative) 01/18/24 00:17 Urine Cocaine Scre en Negative ng/mL (N egative) 01/18/24 00:17 U Marijuana (THC) Screen Negative ng/mL (N egative) 01/18/24 00:17 Ethyl Alcohol 278 mg/dL (0-10) H 01/18/24 00:30 Vitals: Last Vital Signs Temp 98.1 F 01/22/24 06:00 Pulse 83 01/22/24 06:00 Resp 17 01/22/24 06:00 BP 130/90 01/22/24 06:00 Pulse Ox 99 01/22/24 06:00 O2 Del Method Room Air 01/21/24 14:00 Discharge Plan Discharge Patient Disposition: Home Condition: Stable Prescriptions: New fluoxetine 20 mg Capsule 20 mg PO DAILY 30 Days Qty: 30 1RF trazodone 50 mg Tablet 50 mg PO BEDTIME PRN (Reason: Sleep) 30 Days Qty: 30 1RF Vitamin B-1 (mononitrate) 100 mg Tablet 100 mg PO DAILY 30 Days Qty: 30 1RF No Action No Known Home Medications Discharge Orders: Discharge Order (Routine); Ordered 01/22/24 Ordered By: Xavier Trivedi Referrals: [facility] [Outside] Shayna Tyson, CRISIS NURSE [Primary Care Provider] - Discharge Diet: Regular Discharge Activity: Resume usual activity Patient Instructions: Opioid Safety, Pain Management Discharge Attestations NPU Time Spent in Discharge Care*: less than 30 min Specific Discharge Activities: Specific discharge activities: educating patient, discussing with skilled nursing case manager/social workers/dc planners, documenting/other paperwork and evaluating patient/reviewing data Coding Level of Care Code Acute Code for [facility] Diagnoses Major depressive disorder F32.9 Suicidal ideation R45.851 Alcohol intoxication F10.929 Alcohol use disorder, moderate, dependence F10.20
[2024-01-22 12:33] VITALS: BP 130/90; PULSE 83; RESP 17; TEMP 36.7; O2SAT 99
[2024-01-22 12:34] VITALS: BP 130/90; PULSE 83; RESP 17; TEMP 36.7; O2SAT 99
[2024-01-22 14:00] VITALS: BP 114/80; PULSE 80; RESP 16; TEMP 36.2; O2SAT 98
== END 2024-01-22 15:14 | disposition home or self-care (01) | DRG 881 ==
LOC: ER 01:33 → NP 01:43
PROVIDERS: Admitting Provider Psychiatry & Neurology Psychiatry; Emergency Provider Emergency Medicine; PCP Nurse Practitioner Family; Visit Provider Psychiatry & Neurology Psychiatry
DX: F32.9 Major depressive disorder, single episode, unspecified (principal); R45.851 Suicidal ideations; F10.229 Alcohol dependence with intoxication, unspecified; F17.210 Nicotine dependence, cigarettes, uncomplicated; Y90.9 Presence of alcohol in blood, level not specified
CPT/HCPCS: 36415; 36416; 80053; 80306; 80307; 81001; 82962; 84443; 85025; 93005; 97165; 99285

== ENCOUNTER 2024-07-12 14:21 | Emergency (ER) | payer BC, SELFPAY ==
[2024-07-12 14:30] VITALS: BP 160/96; PULSE 85; RESP 16; TEMP 36.8; O2SAT 96; BMI 20.7
[2024-07-12 14:37] VITALS: BP 160/96; PULSE 85; RESP 16; TEMP 36.8; O2SAT 96
--- NOTE | 2024-07-12 14:53 | XRR_ITS ---
PROCEDURE INFORMATION: Exam: XR Right Foot Exam date and time: 07/12/2024 3:21 PM Age: 48 years old Clinical indication: Pain; Foot; Right; Patient HX: Type of trauma not specified TECHNIQUE: Imaging protocol: Radiologic exam of the right foot. Views: 3 or more views. COMPARISON: CR XR ankle RT min 3V* [id number] 07/12/2024 3:17 PM FINDINGS: Bones/joints: An acute minimally displaced fracture involves the lateral malleolus. No other fracture noted. Soft tissues: Normal. XR/XR foot RT min 3V* [id number] IMPRESSION: Lateral malleolus fracture
--- NOTE | 2024-07-12 14:53 | XRR_ITS ---
PROCEDURE INFORMATION: Exam: XR Right Ankle Exam date and time: 07/12/2024 3:17 PM Age: 48 years old Clinical indication: Pain; Ankle; Right; Patient HX: Trauma not specified TECHNIQUE: Imaging protocol: Radiologic exam of the right ankle. Views: 3 or more views. COMPARISON: No relevant prior studies available. FINDINGS: Bones/joints: There is an acute transverse oblique fracture involving the lateral malleolus with 3 mm lateral displacement of the distal fracture fragment. No other fracture noted. An intramedullary alen is noted in the tibia. Ankle mortise is intact. Soft tissues: Lateral soft tissue swelling is noted. XR/XR ankle RT min 3V* [id number] IMPRESSION: Acute minimally displaced lateral malleolus fracture
--- NOTE | 2024-07-12 14:53 | W.ED.LOWEXIN ---
HPI - Extremity Injury (Lower) General: Chief Complaint: Extremity Injury, Lower Stated Complaint: right ankle pain Time Seen by Provider: 07/12/24 14:53 Source: patient Mode of arrival: ambulatory Limitations: no limitations History of Present Illness: Patient is a 48-year-old male who presents to ED today for evaluation of a right foot and ankle injury that he sustained 2 days ago. Patient states he was walking when he accidentally rolled the ankle and heard a pop . Patient has since noticed significant swelling and bruising to the foot and ankle. He is utilizing crutches upon arrival to the emergency department today. He has no other injuries or complaints at this time. Does report previous hardware to the right lower extremity. MD complaint: ankle injury and foot injury Onset (ago): day(s) Injury: Right: ankle and foot Place: home Severity: moderate Relieving factors: immobilization Exacerbating factors: weight bearing Associated symptoms: Reports inability to bear weight Other symptoms: none Related Data Previous Rx's Medication Instructions Recorded fluoxetine 20 mg capsule 20 mg PO DAILY 30 days #30 caps 06/24/24 Allergies Allergy/AdvReac Type Severity Reaction Status Date / Time Alpha-Gal Allergy ALGY-Anaphy Verified 05/01/24 13:52 (Rejcoduth-Vpokz-6,3-Gala laxis Review of Systems Musc: Reports: extremity pain (R foot), extremity swelling (R foot), joint pain (R ankle) and joint swelling (R ankle) Neuro: Reports: difficulty walking (due to R foot/ankle pain); Denies: numbness in extremities, weakness in extremities or sensory changes [facility] PFSH: Medical History Nicotine use disorder Psychiatric care Depression Testicular pain H/O fracture of leg H/O undescended testicle Pain in both testicles Undescended left testicle Family History Mother Diabetes Father No problems noted. Social History Smoking and tobacco/nicotine status: current every day tobacco/nicotine user cigarettes Packs smoked per day: 0.5 Alcohol intake: current Alcohol intake frequency: few times a week Alcohol type: beer Substance/Drug Use: never Marital status: Current occupational status: employed Physical Exam Const: COMMON NORMALS: no acute distress, average body habitus, patient oriented x3, no limitations, healthy appearing, alert and well nourished Extremity: COMMON NORMALS: capillary refill normal and no calf tenderness GENERAL: Yes normal exam except as noted RIGHT LOWER EXTREMITY: Yes foot & digits and Yes foot & digits OTHER: Patient has significant swelling to the right foot and ankle as well as ecchymosis. Maximum tenderness is to the lateral aspect of the right ankle. No obvious bony abnormalities. DP/PT pulses are intact. Brisk cap refill and sensation is normal. Neuro: COMMON NORMALS: patient oriented x3, moves all extremities, no focal motor deficits and no sensory deficits noted SENSORIUM/ORIENTATION: Yes alert Course Vital Signs: Vital signs: Vital Signs Temperature 98.3 F 07/12/24 14:37 Pulse Rate 85 07/12/24 14:37 Respiratory Rate 16 07/12/24 14:37 Blood Pressure 160/96 07/12/24 14:37 Pulse Oximetry 96 07/12/24 14:37 Oxygen Delivery Me thod Room Air 07/12/24 14:37 MDM - Extremity Injury (Lower) Medical Decision Making XR showing a minimally displaced lateral malleolus fracture. He will be splinted and will have him follow-up with podiatry/ortho. Lab Data Radiology Impressions Ankle X-Ray 07/12/24 14:53 IMPRESSION: Acute minimally displaced lateral malleolus fracture Foot X-Ray 07/12/24 14:53 IMPRESSION: Lateral malleolus fracture All radiology interpretation(s) finalized by discharge Discharge Plan Discharge Patient Disposition: Home Clinical Impression: Fracture of lateral malleolus of right ankle Condition: Stable Prescriptions: No Action fluoxetine 20 mg capsule 20 mg PO DAILY 30 Days Qty: 30 1RF Discharge Orders: Discharge ED (Routine); Ordered 07/12/24 Ordered By: Crys Meek Referrals: Shayna Tyson NP [Primary Care Provider] - Patient Instructions: Ankle Fracture (DC) Activity Restrictions/Additional Instructions: As we discussed, you need to stay in your splint at all times until your follow-up with podiatry. Case management should reach out to you early next week to help set you up with this appointment. You need to ice and elevate the extremity is much as possible. Continue to use your crutches for no weightbearing until told otherwise by podiatry. Coding Level of Care Code ED Supervisor Communications [employer] Signals for Ezequiel Rodriguez
[2024-07-12 16:05] VITALS: BP 152/77; PULSE 81; O2SAT 99
--- NOTE | 2024-07-15 07:00 | DCPLANNER ---
messaged podiatry for er f/u
== END 2024-07-12 16:06 | disposition home or self-care (01) ==
PROVIDERS: Emergency Provider Physician Assistant; PCP Nurse Practitioner Family
DX: S82.61XA Displaced fracture of lateral malleolus of right fibula, initial encounter for closed fracture (principal); F17.210 Nicotine dependence, cigarettes, uncomplicated; X58.XXXA Exposure to other specified factors, initial encounter
CPT/HCPCS: 73610; 73630; 99283

== ENCOUNTER 2024-07-22 06:00 | Outpatient (CLI) | payer BC, MEDICAID, SELFPAY | END 2024-07-22 06:01 | disposition home or self-care (01) | LOC: SPT 07-24 14:35 | PROVIDERS: Visit Provider Podiatrist Foot & Ankle Surgery | DX: Z46.89 Encounter for fitting and adjustment of other specified devices (principal); S82.891S Other fracture of right lower leg, sequela; X58.XXXS Exposure to other specified factors, sequela | CPT/HCPCS: L4361 ==

== ENCOUNTER → 2024-07-22 15:33 | Outpatient (BNVA) | payer BC, SELFPAY | PROVIDERS: PCP Nurse Practitioner Family; Visit Provider Podiatrist Foot & Ankle Surgery | DX: S82.831A Other fracture of upper and lower end of right fibula, initial encounter for closed fracture; X50.9XXA Other and unspecified overexertion or strenuous movements or postures, initial encounter | CPT/HCPCS: 73610 ==

== ENCOUNTER → 2024-08-08 15:01 | Outpatient (BNVA) | payer BC, MEDICAID, SELFPAY | PROVIDERS: Visit Provider Podiatrist Foot & Ankle Surgery | DX: S82.401A Unspecified fracture of shaft of right fibula, initial encounter for closed fracture (principal); X50.9XXA Other and unspecified overexertion or strenuous movements or postures, initial encounter | CPT/HCPCS: 73610 ==